=== PATIENT | male | born 1995 | race Caucasian/White ===

== ENCOUNTER 2017-04-28 18:13 | Emergency (ER) | payer OTHER ==
[2017-04-28] MEDS ORDERED: Clindamycin CAP* 150 MG PO ONE (19:43)
[2017-04-28] MEDS ORDERED: Acetaminophen TAB* 325 MG PO ONE (19:44)
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
[2017-04-28] MEDS ORDERED: oxyCODONE TAB* 5 MG TAB PO ONE (22:24)
[2017-04-28] MEDS ORDERED: HYDROcodone/ACETAMIN 5-325 MG* 1 TAB PO ONE (22:24)
[2017-04-28 22:37] VITALS: BP 123/91
== END 2017-04-28 22:50 | disposition home or self-care (01) ==
LOC: ED 18:13
DX: S06.0X9A Concussion with loss of consciousness of unspecified duration, initial encounter (principal); S02.5XXA Fracture of tooth (traumatic), initial encounter for closed fracture; V19.9XXA Pedal cyclist (driver) (passenger) injured in unspecified traffic accident, initial encounter; Y93.55 Activity, bike riding; Y92.9 Unspecified place or not applicable; S01.512A Laceration without foreign body of oral cavity, initial encounter; L08.9 Local infection of the skin and subcutaneous tissue, unspecified; T14.8 Other injury of unspecified body region; S02.2XXA Fracture of nasal bones, initial encounter for closed fracture
CPT/HCPCS: 70450; 70486; 87070; 87205; 87640; 87641; 99282; A9270-GY